=== PATIENT | female | born 1995 | race African-American/Black ===

== ENCOUNTER 2019-07-30 17:44 | Emergency (ER) | payer SELFPAY ==
[~2019-07-30] VITALS: Ht 147.3 cm; Wt 66.0 kg
[2019-07-31 00:39] VITALS: BP 112/74
== END 2019-07-31 00:40 | disposition home or self-care (01) ==
LOC: ER 17:44
DX: N39.0 Urinary tract infection, site not specified (principal); N12 Tubulo-interstitial nephritis, not specified as acute or chronic
CPT/HCPCS: 81025; 99282